=== PATIENT | female | born 1975 ===

== ENCOUNTER 2018-08-07 08:42 | Emergency (ER) | payer MEDICAID ==
[2018-08-07 08:43] VITALS: BMI 23.5
[2018-08-07 09:02] VITALS: PULSE 75; O2SAT 100
--- NOTE | 2018-08-07 09:18 | ED PDOC ---
Arrival/HPI - General Chief Complaint: Lower Extremity Problem/Injury Time Seen by Provider: 08/07/18 08:51 Historian: Patient - History of Present Illness Narrative History of Present Illness (Text): 08/07/18 09:15 42 year old female presents to the emergency department complaining of an area of left leg redness and swelling that began 3 days ago. Patient is able to walk without any difficulty. Patient denies any fever, chills, nausea, vomiting, diarrhea, urinary symptoms, back pain, neck pain, headache, dizziness, or any other complaints. Past Medical History - Provider Review Nursing Documentation Reviewed: Yes - Infectious Disease Hx of Infectious Diseases: None - Tetanus Immunization Tetanus Immunization: Unknown - Past Medical History Past Medical History: No Previous - Integumentary Hx Eczema: Yes - Musculoskeletal/Rheumatological Hx Osteoarthritis: Yes - Psychiatric Hx Psychophysiologic Disorder: No Hx Depression: No Hx Emotional Abuse: No Hx Physical Abuse: No Hx Substance Use: Yes (marijuana) - Surgical History Hx Breast Biopsy: Yes (left breast lump) - Anesthesia Hx Anesthesia: Yes Hx Anesthesia Reactions: No Hx Malignant Hyperthermia: No - Suicidal Assessment Feels Threatened In Home Enviroment: No Family/Social History - Physician Review Nursing Documentation Reviewed: Yes Family/Social History: No Known Family HX Smoking Status: Never Smoked Hx Alcohol Use: Yes Hx Substance Use: Yes (marijuana) Hx Substance Use Treatment: No Allergies/Home Meds Allergies/Adverse Reactions: Allergies No Known Allergies Allergy (Verified 09/06/16 09:16) Review of Systems - Physician Review All systems were reviewed & negative as marked: Yes - Review of Systems Constitutional: absent: Fevers Gastrointestinal: absent: Vomiting Physical Exam - Physical Exam Narrative Physical Exam (Text): Constitutional: No acute distress. Head: Normocephalic. Atraumatic. Eyes: PERRL. ENT: Moist mucous membranes. Neck: Supple. Cardiovascular: Regular rate. Chest: No tenderness. Respiratory: Clear to auscultation bilaterally. GI: Soft. Nontender. Nondistended. Back: No CVA tenderness. Musculoskeletal: Tenderness to touch of the left medial distal thigh proximal lower leg. No tenderness outside of area of erythema. No crepitus. No swelling of extremities. Skin: Induration and erythema noted to area. Warm to touch. Neurologic: Alert, no focal deficit. Vital Signs Reviewed: Yes Vital Signs Temp Pulse Resp BP Pulse Ox 08/07/18 08:43 98 F 75 18 109/77 100 Medical Decision Making ED Course and Treatment: 08/07/18 09:15 Impression: 42 year old female presents complaining of an area redness and swelling to the left leg that began 3 days ago. Plan: -- Cleocin -- Reassess and disposition Progress Notes: 08/07/18 09:18 Patient is in no distress and agrees with the plan to be discharged home with antibiotics. Patient was instructed to follow up with physician or return if symptom worsen, or new symptoms arise. - Scribe Statement The provider has reviewed the documentation as recorded by the Hamilton Khan Provider Scribe Attestation: All medical record entries made by the Hamilton were at my direction and personally dictated by me. I have reviewed the chart and agree that the record accurately reflects my personal performance of the history, physical exam, medical decision making, and the department course for this patient. I have also personally directed, reviewed, and agree with the discharge instructions and disposition. Disposition/Present on Arrival - Present on Arrival Any Indicators Present on Arrival: No History of DVT/PE: No History of Uncontrolled Diabetes: No Urinary Catheter: No History of Decub. Ulcer: No History Surgical Site Infection Following: None - Disposition Have Diagnosis and Disposition been Completed?: Yes Diagnosis: Cellulitis Disposition: HOME/ ROUTINE Disposition Time: 09:18 Patient Plan: Discharge Condition: STABLE Discharge Instructions (ExitCare): Cellulitis (ED) Prescriptions: RX: Clindamycin [Cleocin] 3 cap PO TID #63 cap Forms: [employer] ([place])
[2018-08-07 09:39] VITALS: BP 107/77; RESP 16; TEMP 97.9
== END 2018-08-07 09:35 | disposition home or self-care (01) ==
LOC: ED 08:42
DX: L03.116 Cellulitis of left lower limb (principal); M19.90 Unspecified osteoarthritis, unspecified site